=== PATIENT | male | born 1960 | race Caucasian/White ===

== ENCOUNTER → 2017-02-15 10:01 | Outpatient (CLI) | payer OTHER | END | disposition home or self-care (01) | LOC: D.CT 10:01 | DX: R10.9 Unspecified abdominal pain (principal) ==

== ENCOUNTER → 2017-04-21 09:04 | Outpatient (CLI) | payer OTHER | END | disposition home or self-care (01) | LOC: D.MRI 09:04 | DX: M25.512 Pain in left shoulder (principal) ==

== ENCOUNTER 2018-02-15 05:35 | Day surgery (SDC) | payer OTHER ==
[~2018-02-15] VITALS: Ht 175.3 cm; Wt 86.2 kg
--- NOTE | ~2018-02-15 | OP ---
PATIENT NAME: RONAK ZARCO MEDICAL RECORD: [id number] :62 LOCATION:D[facility] ADMISSION DATE: SURGEON: JERRY PHILLIPS MD DATE OF OPERATION: 02/15/2018 PREOPERATIVE DIAGNOSES: 1. Intractably symptomatic hemorrhoids. 2. Third-degree internal hemorrhoidal prolapse. POSTOPERATIVE DIAGNOSES: 1. Intractably symptomatic hemorrhoids. 2. Third-degree internal hemorrhoidal prolapse. 3. Persistent prolapsed hemorrhoid at 11 o'clock after the procedure for prolapse and hemorrhoids. PROCEDURES: 1. Procedure for prolapse and hemorrhoids. 2. Single column hemorrhoidectomy with closure. SURGEON: Jerry Phillips MD CONE TREATER: None. BLOOD LOSS: Less than 50 cc. ANESTHESIA: General. COMPLICATIONS: None. The risks, possible complications, and alternatives to the procedure were explained to the patient. He elects to proceed. The discussion specifically included, but was not limited to, bleeding requiring an emergency reoperation, infection, anal stenosis as well as postoperative fecal incontinence. OPERATIVE COURSE: The patient was conveyed the operating room electively on 02/15/2018. General anesthesia was induced by the anesthesia staff. The patient was placed in the lithotomy position. The buttocks were taped laterally. The anus and perianal areas were sterilely prepped and draped. I then dilated the anus laterally to 3 fingers. The PPH dilator retractor was placed and then the retractor was sewn in place with circumferential 2-0 silks to the anoderm. A mucosal pursestring suture of 2-0 Prolene was applied for 1 cm cephalad to the clear retractor. The PPH stapling device was inserted and the anvil was inserted cephalad to the pursestring suture, which was then tightened and tied. The stapling device was engaged. It was held in place for 2 minutes and then fired. It was then removed. There was an entire donut of lower rectal mucosal tissue as well as internal hemorrhoidal tissue within the stapling device. Bleeding along the anastomotic staple line was controlled with [id number] 3-0 Vicryls. A combination of sterile preparation and Marcaine were used to infiltrate the perianal tissues. The clear retractor was removed. There was a persistent prolapsed hemorrhoid at 11 o'clock. U-shaped anal retractors were placed. There was no evidence of an anal fissure in this patient. A [id number] 3-0 Vicryl was placed at the 11 o'clock position within the staple line. Utilizing the Harmonic scalpel, I excised the anoderm as well as the internal and external hemorrhoidal bundles. At no time was there any damage to the anal musculature. Additional hemorrhoidal tissue was removed OPERATIVE REPORT [id number] RONAK ZARCO in a piecemeal fashion. Submucosal and subcutaneous flaps were created sharply. The closure consisted of a running locking 3-0 Vicryl suture, which I ran out on to the anoderm and then tied. Gelfoam was applied within the anus and lower rectum. A topical anesthetic ointment was applied to the external hemorrhoids. The patient was then extubated and conveyed to post-anesthesia care unit where he was in stable condition. I will plan to see him in my office in 3 weeks. He can be dismissed home on hydrocodone as well as Valium and Colace. TRANSINT:[id number] Voice Confirmation ID: [id number] DOCUMENT ID: [id number] JERRY PHILLIPS MD at 1742 CC: DEQUAN MARTINEZ [id number] DICTATION DATE: 02/15/18 1006 SYSTEMS DESIGNER: 02/15/18 1208 [facility] 02/15/18 [id number] [place] [address]
[~2018-02-15 05:35] MED LIST: GEMFIBROZIL600 MG PO; MULTI-DAY VITAM1 TAB PO; NIASPAN500 MG PO; OMEPRAZOLE20 M1 PO
[2018-02-15 06:18] LABS: MCH 29.3 pg (26.0-34.0); MCHC 34.2 g/dL (31.0-37.0); MCV 85.6 fL (80.0-100.0); MEAN PLATELET VOLUME 9.4 fL (7.4-10.4); RBC 4.44 10x6/uL (4.20-6.10); RDW 14.6 % (11.5-14.5); WBC 5.2 10x3/uL (4.8-10.8)
[2018-02-15 07:07] VITALS: BP 119/79; Ht 175.3 cm; Wt 86.2 kg
== END 2018-02-15 12:01 | disposition home or self-care (01) ==
LOC: D.OPS 05:35
PROVIDERS: Anesthesiology
DX: K64.2 Third degree hemorrhoids (principal); Z01.812 Encounter for preprocedural laboratory examination